=== PATIENT | male | born 1970 ===

== ENCOUNTER 2018-02-23 06:54 | Emergency (ER) | payer MEDICAID, OTHER ==
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
[2018-02-23 10:30] VITALS: BP 128/78; PULSE 78; RESP 19; TEMP 97; O2SAT 98
== END 2018-02-23 10:32 | disposition home or self-care (01) ==
LOC: H.ER 06:54
DX: G89.29 Other chronic pain (principal); Z59.0 Homelessness